=== PATIENT | female | born 1970 | race Caucasian/White ===

== ENCOUNTER 2017-06-25 12:00 | Emergency (ER) | payer BC ==
[2017-06-25 12:06] VITALS: TEMP 97.9; BMI 21.2
[2017-06-25 14:00] LABS: BASO % 0.7 % (0-2.0); EOS % 0.5 % (0-4.5); HCG,QUALITATIVE URINE NEGATIVE; HEMATOCRIT 40.1 % (32.4-45.2); LYMPH % 31.7 % (8-40); MCH 28.1 pg (25.7-33.7); MCHC 32.4 g/dl (32.0-36.0); MEAN CELL VOLUME 86.8 fl (80-96); MEAN PLT VOLUME 7.9 fl (7.5-11.1); MONO % 5.2 % (3.8-10.2); NEUT % 61.9 % (42.8-82.8); PLATELET COUNT 222 K/MM3 (134-434); RBC 4.62 M/mm3 (3.60-5.2); RDW 12.1 % (11.6-15.6); WHITE BLOOD COUNT 5.1 K/mm3 (4.0-10.0)
[2017-06-25 14:04] LABS: URINE APPEARANCE CLEAR; URINE BILIRUBIN NEGATIVE (NEGATIVE); URINE BLOOD NEGATIVE (NEGATIVE); URINE COLOR YELLOW; URINE GLUCOSE (UA) NEGATIVE (NEGATIVE); URINE KETONE NEGATIVE (NEGATIVE); URINE LEUK ESTERASE NEGATIVE (NEGATIVE); URINE NITRITE NEGATIVE (NEGATIVE); URINE PROTEIN NEGATIVE (NEGATIVE); URINE UROBILINOGEN NEGATIVE mg/dL (0.2-1.0)
[2017-06-25 14:24] LABS: ALBUMIN 4.1 g/dl (3.4-5.0); ALK PHOS 73 U/L (45-117); ANION GAP 9 (8-16); BILIRUBIN,TOTAL 0.4 mg/dL (0.2-1.0); BLOOD UREA NITROGEN 14 mg/dL (7-18); CALCIUM 8.8 mg/dL (8.5-10.1); CHLORIDE 103 mmol/L (98-107); CO2 27 mmol/L (21-32); CREATININE 0.8 mg/dL (0.55-1.02); GLUCOSE,RANDOM 89 mg/dL (74-106); POTASSIUM 3.7 mmol/L (3.5-5.1); SGOT/AST 13 U/L (15-37); SGPT/ALT 19 U/L (12-78); SODIUM 139 mmol/L (136-145); TOT PROT 7.4 g/dl (6.4-8.2)
--- NOTE | 2017-06-25 14:48 | PDOC ---
History of Present Illness - General History Source: Patient Exam Limitations: No Limitations - History of Present Illness Initial Comments: 06/25/17 14:48 The patient is a 47 year old female with a significant PMH of fibromyalgia, lupus, endometriosis, osteoporosis, and sacral fracture who presents to the emergency department with right sided abdominal pain for the past 3 days. The patient reports the abdominal pain came on gradually and is now waxing and waning. The patient describes the R sided abdominal pain as a 6/10, burning, sharp, with mild radiation to the upper back. The patient notes this R sided abdominal pain is different from her normal abdominal aches which are not typically diffuse and non-radiating. The patient states she has had a colonoscopy in the past that was normal. The patient endorses she has abdominal aches and nausea at baseline secondary to her endometriosis and normally take percocets. The patient denies chest pain, shortness of breath, headache and dizziness. Denies fever, chills, vomit, diarrhea and constipation. Denies dysuria, frequency, urgency and hematuria. Allergies: NKA Past surgical history: Total hysterectomy, appendectomy, Social history: No reported alcohol, drug, or cigarette use. PCP: Dr. Cuenca <Betsey Vargas - Last Filed: 06/25/17 14:48> <Trista Reynolds - Last Filed: 06/25/17 17:50> - General Chief Complaint: Pain Stated Complaint: RT SIDE PAIN Time Seen by Provider: 06/25/17 12:24 Past History <Betsey Vargas - Last Filed: 06/25/17 14:48> - Past Medical History Anemia: No Asthma: No Cancer: No CVA: No COPD: No CHF: No Dementia: No Diabetes: No GI Disorders: No Disorders: No HTN: No Hypercholesterolemia: No (PREVIOUS) Liver Disease: No Psychiatric Problems: Yes (depression) Seizures: No Thyroid Disease: No Other medical history: endometriosis - Surgical History Abdominal Surgery: No Appendectomy: Yes Cardiac Surgery: No Cholecystectomy: No Lung Surgery: No Neurologic Surgery: No Orthopedic Surgery: Yes - Suicide/Smoking/Psychosocial Hx Smoking Status: No Smoking History: Never smoked Have you smoked in the past 12 months: No Number of Cigarettes Smoked Daily: 0 Information on smoking cessation initiated: No Hx Alcohol Use: No Drug/Substance Use Hx: No Substance Use Type: None <Trista Reynolds - Last Filed: 06/25/17 17:50> - Past Medical History Allergies/Adverse Reactions: Allergies Allergy/AdvReac Type Severity Reaction Status Date / Time latex Allergy Verified 06/25/17 12:04 Home Medications: Ambulatory Orders Estradiol 1 mg PO DAILY 07/06/14 Oxycodone HCl/Acetaminophen [Percocet 10-325 mg Tablet] 1 each PO 5XD 06/25/17 Sertraline HCl [Zoloft] 100 mg PO DAILY 06/25/17 Review of Systems - Review of Systems Able to Perform ROS?: Yes Comments:: 06/25/17 14:49 GENERAL/CONSTITUTIONAL: No fever or chills. No weakness. HEAD, EYES, EARS, NOSE AND THROAT: No change in vision. No ear pain or discharge. No sore throat. CARDIOVASCULAR: No chest pain or shortness of breath. RESPIRATORY: No cough, wheezing, or hemoptysis. GASTROINTESTINAL: (+) Right sided abdominal pain. No nausea, vomiting, diarrhea or constipation. GENITOURINARY: No dysuria, frequency, or change in urination. MUSCULOSKELETAL: No joint or muscle swelling or pain. No neck or back pain. SKIN: No rash NEUROLOGIC: No headache, vertigo, loss of consciousness, or change in strength/ sensation. ENDOCRINE: No increased thirst. No abnormal weight change. HEMATOLOGIC/LYMPHATIC: No anemia, easy bleeding, or history of blood clots. ALLERGIC/IMMUNOLOGIC: No hives or skin allergy. <Betsey Vargas - Last Filed: 06/25/17 14:48> *Physical Exam - Vital Signs Last Vital Signs Temp Pulse Resp BP Pulse Ox 97.9 F 78 12 154/74 100 06/25/17 12:04 06/25/17 12:04 06/25/17 12:04 06/25/17 12:04 06/25/17 12:04 - Physical Exam Comments: 06/25/17 14:49 GENERAL: Awake, alert, and fully oriented, in no acute distress HEAD: No signs of trauma EYES: PERRLA, EOMI, sclera anicteric, conjunctiva clear ENT: Auricles normal inspection, hearing grossly normal, nares patent, oropharynx clear without exudates. Moist mucosa NECK: Normal ROM, supple, no lymphadenopathy, JVD, or masses LUNGS: Breath sounds equal, clear to auscultation bilaterally. No wheezes, and no crackles HEART: Regular rate and rhythm, normal S1 and S2, no murmurs, rubs or gallops ABDOMEN: Soft, nontender, normoactive bowel sounds. No guarding, no rebound. No masses EXTREMITIES: Normal range of motion, no edema. No clubbing or cyanosis. No cords, erythema, or tenderness NEUROLOGICAL: Cranial nerves II through XII grossly intact. Normal speech, normal gait SKIN: Warm, Dry, normal turgor, no rashes or lesions noted. <Betsey Vargas - Last Filed: 06/25/17 14:48> - Vital Signs Last Vital Signs Temp Pulse Resp BP Pulse Ox 97.9 F 78 12 154/74 100 06/25/17 12:04 06/25/17 12:04 06/25/17 12:04 06/25/17 12:04 06/25/17 12:04 <Trista Reynolds - Last Filed: 06/25/17 17:50> ED Treatment Course - LABORATORY CBC & Chemistry Diagram: 06/25/17 13:50 06/25/17 13:50 - ADDITIONAL ORDERS Additional order review: Laboratory Results 06/25/17 06/25/17 13:50 13:50 Sodium 139 Potassium 3.7 Chloride 103 Carbon Dioxide 27 Anion Gap 9 BUN 14 Creatinine 0.8 Creat Clearance w eGFR > 60 Random Glucose 89 Calcium 8.8 Total Bilirubin 0.4 AST 13 L ALT 19 Alkaline Phosphatase 73 Total Protein 7.4 Albumin 4.1 Urine Color Yellow Urine Appearance Clear Urine pH 5.0 Ur Specific [place] 1.016 Urine Protein Negative Urine Glucose (UA) Negative Urine Ketones Negative Urine Blood Negative Urine Nitrite Negative Urine Bilirubin Negative Urine Urobilinogen Negative Ur Leukocyte Esterase Negative Urine HCG, Qual Negative 06/25/17 13:50 RBC 4.62 MCV 86.8 MCHC 32.4 RDW 12.1 MPV 7.9 Neutrophils % 61.9 Lymphocytes % 31.7 Monocytes % 5.2 Eosinophils % 0.5 Basophils % 0.7 <Betsey Vargas - Last Filed: 06/25/17 14:48> - LABORATORY CBC & Chemistry Diagram: 06/25/17 13:50 06/25/17 13:50 - ADDITIONAL ORDERS Additional order review: Laboratory Results 06/25/17 06/25/17 13:50 13:50 Sodium 139 Potassium 3.7 Chloride 103 Carbon Dioxide 27 Anion Gap 9 BUN 14 Creatinine 0.8 Creat Clearance w eGFR > 60 Random Glucose 89 Calcium 8.8 Total Bilirubin 0.4 AST 13 L ALT 19 Alkaline Phosphatase 73 Total Protein 7.4 Albumin 4.1 Urine Color Yellow Urine Appearance Clear Urine pH 5.0 Ur Specific [place] 1.016 Urine Protein Negative Urine Glucose (UA) Negative Urine Ketones Negative Urine Blood Negative Urine Nitrite Negative Urine Bilirubin Negative Urine Urobilinogen Negative Ur Leukocyte Esterase Negative Urine HCG, Qual Negative 06/25/17 13:50 RBC 4.62 MCV 86.8 MCHC 32.4 RDW 12.1 MPV 7.9 Neutrophils % 61.9 Lymphocytes % 31.7 Monocytes % 5.2 Eosinophils % 0.5 Basophils % 0.7 - RADIOLOGY Radiology Studies Ordered: Category Date Time Status ABDOMEN US [US] Stat Ultrasound 06/25/17 13:09 Ordered <Trista Ryenolds - Last Filed: 06/25/17 17:50> Medical Decision Making - Medical Decision Making 06/25/17 16:12 Pt presents to the ED complaining of R sided abdominal pain which is more localized and less diffuse than her chronic pain. Denies nausea, vomiting or fever. Patient was tender in her RUQ on my exam, but LFTs are normal and RUQ US is negative. No change in her PO intake or bowel habits that would suggest obstruction. When I reassessed the patient, she still reported pain and told me that she was "sure something is wrong in there". Given her persistent pain and her extensive abdominal history, will check CT abdomen pelvis to rule out abdominal pathology. <Trista Reynolds - Last Filed: 06/25/17 17:50> *DC/Admit/Observation/Transfer - Attestations Scribe Attestion: 06/25/17 14:49 Documentation prepared by Betsey Vargas, acting as medical doctor md/medical director for Trista Reynolds MD. <Betsey Vargas - Last Filed: 06/25/17 14:48> - Discharge Dispostion Admit: No <Trista Reynolds - Last Filed: 06/25/17 17:50> Diagnosis at time of Disposition: Abdominal pain Qualifiers: Abdominal location: right upper quadrant Qualified Code(s): R10.11 - Right upper quadrant pain - Discharge Dispostion Disposition: HOME Condition at time of disposition: Good - Referrals Referrals: Quique Cuenca MD [Primary Care Provider] - - Patient Instructions Printed Discharge Instructions: DI for Abdominal Pain-Adult Additional Instructions: return to the ED for severe pain, pain with fever, severe nausea and vomiting. We did not find an emergent cause of your abdominal pain but you do have inflammation throughout your colon, which needs to be followed up. Make sure that you follow up with your doctor within one week--you may need a colonoscopy. - Post Discharge Activity
[2017-06-25 18:11] VITALS: BP 127/66; PULSE 99
== END 2017-06-25 18:10 | disposition home or self-care (01) ==
LOC: JER 12:00
DX: R10.11 Right upper quadrant pain (principal); M54.89 Other dorsalgia
CPT/HCPCS: 36415; 74177-TC; 76700-TC; 80053; 81003; 84703; 85025; 99283-25